=== PATIENT | female | born 1960 | race Caucasian/White ===

== ENCOUNTER 2022-02-19 06:55 | Emergency (ER) | payer OTHER ==
[2022-02-19 07:18] VITALS: BP 115/81
--- NOTE | 2022-02-19 07:25 | ED Physician Documentation ---
PD HPI URI - Stated complaint Stated Complaint: COVID+ - Chief complaint Chief Complaint: General - History obtained from History obtained from: Patient - History of Present Illness Timing - onset: How many days ago (2) Timing duration: Days (2) Timing details: Abrupt onset, Still present Associated symptoms: Fever, Chills, Nasal congestion, Dry cough. No: Dyspnea, NVD, Bilateral edema Contributing factors: Sick contact (had positive home COVID test this morning.), Travel (traveled from [place] several days ago.). No: Immunocompromised Similar symptoms before: Has not had sx before Recently seen: Not recently seen Review of Systems Constitutional: reports: Fever, Chills, Myalgias, Fatigue Nose: reports: Rhinorrhea / runny nose, Congestion Respiratory: reports: Cough GI: reports: Nausea. denies: Vomiting, Diarrhea Skin: denies: Rash, Lesions Neurologic: denies: Altered mental status, Headache PD PAST MEDICAL HISTORY - Past Medical History Past Medical History: Yes Cardiovascular: None Respiratory: None Neuro: None Endocrine/Autoimmune: Type 2 diabetes GI: GERD [employer]RA[employer] BUS: None : None HEENT: None Psych: Depression Musculoskeletal: None Derm: None - Past Surgical History Past Surgical History: Yes - Present Medications Home Medications: Ambulatory Orders Medication Instructions Recorded Confirmed Atorvastatin [Lipitor] 20 mg ORAL DAILY 02/19/22 02/19/22 Benzonatate [Tessalon] 100 mg PO TID PRN #20 cap 02/19/22 Insulin Glargine [Lantus Solostar] 20 unit SQ HS 02/19/22 02/19/22 Omeprazole 40 mg ORAL DAILY 02/19/22 02/19/22 PARoxetine HCl [Paxil] 30 mg PO DAILY 02/19/22 02/19/22 - Allergies Allergies/Adverse Reactions: Allergies Allergy/AdvReac Type Severity Reaction Status Date / Time phenazopyridine Allergy Nausea Verified 02/19/22 07:14 [From Pyridium] - Social History Does the pt smoke?: No Smoking Status: Light tobacco smoker Does the pt drink ETOH?: Yes Does the pt have substance abuse?: No - Immunizations Immunizations are current?: Yes PD ED PE NORMAL - Vitals Vital signs reviewed: Yes - General General: Alert and oriented X 3, No acute distress, Well developed/nourished - Neck Neck: Supple, no meningeal sign, No adenopathy - Cardiac Cardiac: RRR, No murmur - Respiratory Respiratory: Clear bilaterally - Abdomen Abdomen: Soft, Non tender - Derm Derm: Normal color, Warm and dry, No rash - Extremities Extremities: Normal ROM s pain, No edema, No calf tenderness / cord Results - Vitals Vitals: Vital Signs - 24 hr 02/19/22 07:15 Temperature 36.7 C Heart Rate 91 Respiratory 20 Rate Blood Pressure 115/81 H O2 Saturation 98 Oxygen O2 Source Room air Departure - Departure Disposition: 01 Home, Self Care Clinical Impression: COVID-19 Cough Qualifiers: Cough type: acute Qualified Code(s): R05.1 - Acute cough Condition: Stable Record reviewed to determine appropriate education?: Yes Instructions: ED Viral Syndrome Prescriptions: Benzonatate [Tessalon] 100 mg PO TID PRN #20 cap PRN Reason: Cough Comments: Stay well-hydrated. Tylenol or ibuprofen if needed for fevers and pains. [id number] cough medicine is fine to try. Honey can be useful as well. I also prescribed benzonatate/Tessalon Perles to help with cough. We gave you the boxed dosing of paxlovid which is 2 antiviral medicines taken twice daily for 5 days. Take them per the package instructions. Common side effects can be nausea diarrhea aches and some's stomach cramps. If your symptoms are much worse with the Paxlovid then discontinue it. Otherwise it generally does help mitigate the symptoms sooner. I sent the prescription to [facility] in [place]. Discharge Date/Time: 02/19/22 07:45
[2022-02-19] MEDS ORDERED: BENZONATATE 100 MG CAPSULE PO STA (07:31)
[2022-02-19] MEDS ORDERED: NIRMATRELVIR/RITONAVIR PREPACK PO STA (07:31)
== END 2022-02-19 07:45 | disposition home or self-care (01) ==
LOC: ED 06:55
DX: U07.1 COVID-19 (principal); R05.1 Acute cough; E11.9 Type 2 diabetes mellitus without complications; Z79.4 Long term (current) use of insulin; F17.200 Nicotine dependence, unspecified, uncomplicated
CPT/HCPCS: 99282; A9270; J3490